=== PATIENT | female | born 1985 | race Caucasian/White ===

== ENCOUNTER 2018-09-27 06:30 | Day surgery (SDC) | payer OTHER ==
[2018-09-26 16:18] VITALS: BMI 24.6
[~2018-09-27] VITALS: Ht 154.9 cm; Wt 57.6 kg
[2018-09-27] VITALS (12 sets, daily range): BP systolic 102–118; BP diastolic 59–74; PULSE 59–104; RESP 11–17; Ht 154.9 cm; Wt 57.6 kg
[2018-09-27] MEDS ORDERED: CEFAZOLIN 2 GM/50 ML (PMX) 50 ML IVPB ONE (08:00)
[2018-09-27] MEDS ORDERED: SOD CHLORIDE 0.9% 1,000 ML IV SCH (08:00)
--- NOTE | 2018-09-27 09:38 | PREAC ---
Date/Time of Note Date/Time of Note DATE: 09/27/18 TIME: 09:36 Anesthesia Eval and Record Evaluation Time Pre-Procedure Interview DATE: 09/27/18 TIME: 09:36 Age 32 Sex female NPO: 8 hrs Preoperative diagnosis lower abdominal mass Planned procedure lower abdominal mass excision, possible ventral hernia repair Past Medical History Past Medical History: None Surgery & Anesthesia Issues No known issue Meds Anticoagulation: No Beta Ander within 24 hr: No Reason Beta Ander not given: Pt. not on B-Ander No Active Prescriptions or Reported Meds Current Medications Sodium Chloride 1,000 ml @ 75 mls/hr [id number] IV Last administered on 09/27/18at 07:19; Admin Dose 75 MLS/HR; Start 09/27/18 at 08:00; Stop 09/27/18 at 21:19 Meds reviewed: Yes Allergies Coded Allergies: No Known Allergy (Unverified , 09/27/18) Allergies Reviewed: Yes Labs/Studies Labs Reviewed: Reviewed by anesthesiologist test: Negative Pre-procedure Exam Last vitals Vital Signs Date Temp Pulse Resp B/P (MAP) Pulse Ox O2 O2 Flow FiO2 Time Delivery Rate 09/27/18 98.2 59 16 111/63 96 Room Air 07:35 (79) Airway: Adequate mouth opening, Adequate thyromental dist Mallampati: Mallampati II Teeth: Normal Lung: Normal Heart: Normal ASA Physical Status ASA physical status: 1 Emergency: None Planned Anesthetic General/MAC: ETT Nerve block: TAP (bilateral) Planned Pain Management Single shot nerve block, Parenteral pain med Pre-operative Attestations Prior to commencing anesthesia and surgery, the patient was re-evaluated, there was verification of: *The patient's identity *The results of appropriate recent lab work and preoperative vital signs *The above evaluation not changing prior to induction *Anesthetic plan, risk benefits, alternative and complications discussed with patient/family; questions answered; patient/family understands, accepts and wishes to proceed. Kam Richard M.D. Sep 27, 2018 09:38
[2018-09-27] MEDS ORDERED: CEFAZOLIN 1 GM INJ ONE (09:43)
[2018-09-27] MEDS ORDERED: GLYCOPYRROLATE 0.4 MG INJ ONE (09:43)
[2018-09-27] MEDS ORDERED: NEOSTIGMINE 3 MG/3 ML SYRINGE ONE (09:43)
[2018-09-27] MEDS ORDERED: ROCURONIUM 50 MG INJ ONE (09:43)
[2018-09-27] MEDS ORDERED: PROPOFOL 20 ML ONE (09:43)
[2018-09-27] MEDS ORDERED: MIDAZOLAM 1 MG/ML 2 ML INJ ONE (09:43)
[2018-09-27] MEDS ORDERED: DEXAMETHASONE 4 MG/ML 5 ML INJ ONE (09:44)
[2018-09-27] MEDS ORDERED: ONDANSETRON 4 MG INJ ONE (09:44)
[2018-09-27] MEDS ORDERED: FENTAnyl 50 MCG/ML VIAL ONE (09:44)
[2018-09-27] MEDS ORDERED: ROPIVACAINE 0.5 % 30 ML VIAL ONE (09:45)
[2018-09-27] MEDS ORDERED: LABETALOL HCL 20MG INJ IV PRN (10:00)
[2018-09-27] MEDS ORDERED: FENTAnyl 50 MCG/ML VIAL IV PRN ×3 (10:00)
[2018-09-27] MEDS ORDERED: ALBUTEROL 0.083% (NEB) 2.5 MG/3 ML AMP HHN PRN (10:00)
[2018-09-27] MEDS ORDERED: hydrALAzine 20 MG INJ IV PRN (10:00)
[2018-09-27] MEDS ORDERED: MEPERIDINE 25 MG INJ IV PRN (10:00)
[2018-09-27] MEDS ORDERED: EPHEDrine 25 MG/5 ML SYG IV PRN (10:00)
[2018-09-27] MEDS ORDERED: OXYCODONE/ACETAMINOPHEN (5/325) TAB PO PRN ×2 (10:00)
[2018-09-27] MEDS ORDERED: MIDAZOLAM 1 MG/ML 2 ML INJ IV PRN (10:00)
[2018-09-27] MEDS ORDERED: HYDROmorphONE 1 MG/5 ML IV SYRINGE IV PRN ×3 (10:00)
[2018-09-27] MEDS ORDERED: ONDANSETRON 4 MG INJ IV PRN (10:00)
[2018-09-27] MEDS ORDERED: DIPHENHYDRAMINE 50 MG INJ IV PRN (10:00)
[2018-09-27] MEDS ORDERED: IPRATROPIUM (NEB) 0.5 MG/2.5 ML AMP HHN PRN (10:00)
[2018-09-27] MEDS ORDERED: TRIMETHOBENZAMIDE 100 MG/ML VIAL IM PRN (10:00)
[2018-09-27] MEDS ORDERED: KETOROLAC 30 MG INJ ONE (10:31)
--- NOTE | 2018-09-27 10:52 | OPR ---
Date/Time of Note Date/Time of Note DATE: 09/27/18 TIME: 10:48 Operative Report Procedure Date: Sep 27, 2018 Preoperative Diagnosis left abdominal tumor Postoperative Diagnosis left abdominal subfascial tumor Operation/Procedure Performed 1. wide local excision of subfascial tumor 5 cm tumor 5 cm incision 2. localized adjacent tissue transfer with the use of skin flaps 10 sq cm defect of left lower abdomen 3. repair of left abdominal fascial defect 16 sq cm fascial defect of left abdomen Surgeon see signature line Paperhanger Assistant none Anesthesia Type: general Estimated Blood Loss: 0 - 10 ml's Transfusion none Specimen left abdominal tumor Grafts/Implants none Complications none Pt Condition Post Procedure: stable Indications This is a 32-year-old female with left lower abdominal tumor. She required surgical excision of the tumor. Risks alternatives benefits and personal were discussed the patient. Potential complications including but not limited to bleeding infection recurrence of tumor and need for additional surgeries were discussed the patient. Patient expressed understanding and consents to the operation. Procedure Description Patient is taken to the OR and prepped and draped in usual sterile fashion. Surgical timeout was performed. IV antibiotics were given. Transverse curvilinear incision was made over the prior scar with a 15 blade. Dissection cautery skin onto the area of the tumor. The tumor appears to be affixed to the anterior aspect of the external oblique fascia. Wide local excision was performed using cautery of the tumor. Good hemostasis status. There was a small area of the fascial weakening. This was most likely due to the adherent tumor. This area is closed with a running 0 Vicryl. This is allow the fascial defect to be primarily closed. Good hemostasis status. Due to the tissue defect localized adjacent to his transfer with these of skin flaps was performed. Multilayer closed with interrupted 3-0 Vicryls. Skin was then closed with running 4-0 Monocryl. A regional block was performed by the anesthesiologist to begin the case. Steri-Strips and dry dressings were applied. David SIEGEL Sep 27, 2018 10:52
[2018-09-27] MEDS ORDERED: HYDROCODONE/APAP (5/325) TAB PO ONE (11:00)
--- NOTE | 2018-09-27 11:06 | PAC ---
Date/Time of Note Date/Time of Note DATE: 09/27/18 TIME: 11:05 Post-Anesthesia Notes Post-Anesthesia Note Last documented vital signs Vital Signs Date Temp Pulse Resp B/P (MAP) Pulse Ox O2 O2 Flow FiO2 Time Delivery Rate 09/27/18 98.2 59 16 111/63 96 Room Air 07:35 (79) Activity: WNL Respiratory function: WNL Cardiovascular function: WNL Mental status: Baseline Pain reasonably controlled: Yes Hydration appropriate: Yes Nausea/Vomiting absent: Yes Kam Richard M.D. Sep 27, 2018 11:06
== END 2018-09-27 12:15 | disposition home or self-care (01) ==
LOC: SDS 06:30
PROVIDERS: ATTEND Surgery
DX: R19.00 Intra-abdominal and pelvic swelling, mass and lump, unspecified site (principal); N80.8 Other endometriosis
CPT/HCPCS: 84703; 88307; J0690; J1100; J1885; J2250; J2405; J2710; J2795; J3010